=== PATIENT | male | born 1945 | race Caucasian/White ===

== ENCOUNTER 2017-01-11 13:13 | Observation (INO) | payer MEDICARE ==
[~2017-01-11] VITALS: Ht 170.2 cm; Wt 75.0 kg
[~2017-01-11 13:13] MED LIST: CIPR250T2 PO; DOXA1 PO; MOBI15TA PO; PROS5TAB2 PO; ULTR50TA PO; [UNRECOGNIZED DRUG - CODE] TOP
[2017-01-11 14:10] VITALS: BP 111/62; PULSE 85; RESP 12; TEMP 98.1; O2SAT 91
[2017-01-11 14:14] VITALS: BP 111/62; PULSE 84; RESP 21; O2SAT 98
--- NOTE | 2017-01-11 14:31 | PD ---
HPI Chief Complaint: Altered Mental Status Time Seen by Provider: 14:13 Travel History International Travel<30 days: No Contact w/Intl Traveler<30days: No Traveled to known affect area: No History of Present Illness HPI 71-year-old male came to the emergency room brought by EMS for altered mental status. Patient is very lethargic and unable to give any meaningful history. He was found outside the bar. No signs of assault or injury. Vital signs are stable. [facility] Past Medical History Narrative Medical List of his past medical, surgical, social and family history was reviewed from the nursing note. Medical History: Unable to Obtain Arthritis: Yes Asthma: No Blood Disorders: No Anxiety: No Depression: No Cancer: No Cardiovascular Problems: No High Cholesterol: Yes Chemotherapy: No COPD: No Diabetes: No Diminished Hearing: No Endocrine: No Kidney Stones: Yes Musculoskeletal: No Neurologic: No Psychiatric: No Sleep Apnea: No Thyroid Disease: No Influenza Vaccination: No Past Surgical History Surgical History: Unable to Obtain Other Surgery: Yes (L KNEE) Social History Alcohol Use: Yes (DAILY) Tobacco Use: Yes (1 PPD) Substance Use: Yes (K2 AND MARIJUANA) Allergies-Medications (Allergen,Severity, Reaction): Coded Allergies: No Known Allergies (Verified , 01/15/17) Comments No known drug allergies. Reported Meds & Prescriptions Reported Meds & Active Scripts Active Active Prescriptions or Reported Medications Unobtainable Narrative Medication Awaiting for the nurse to do a med reconciliation. Review of Systems Except as stated in HPI: all other systems reviewed are Neg Physical Exam Narrative GENERAL: Lethargic, slurred speech, no obvious distress SKIN: Focused skin assessment warm/dry. HEAD: Atraumatic. Normocephalic. EYES: Pupils equal and round. No scleral icterus. No injection or drainage. ENT: No nasal bleeding or discharge. Mucous membranes pink and moist. NECK: Trachea midline. No JVD. CARDIOVASCULAR: Regular rate and rhythm. No murmur appreciated. RESPIRATORY: No accessory muscle use. Clear to auscultation. Breath sounds equal bilaterally. GASTROINTESTINAL: Abdomen soft, non-tender, nondistended. Hepatic and splenic margins not palpable. MUSCULOSKELETAL: No obvious deformities. No clubbing. No cyanosis. No edema. NEUROLOGICAL: GCS of 13, lethargic. No obvious cranial nerve deficits. Motor grossly within normal limits. Slurred speech. PSYCHIATRIC: Appropriate mood and affect; insight and judgment normal. Data Data Last Documented VS Vital Signs Date Time Temp Pulse Resp B/P Pulse Ox O2 Delivery O2 Flow Rate FiO2 01/11/17 16:20 69 16 123/70 100 Room Air 01/11/17 15:16 2 01/11/17 14:10 98.1 Orders Electrocardiogram (01/11/17 14:35) Ammonia (01/11/17 14:35) Complete Blood Count With Diff (01/11/17 14:35) Comprehensive Metabolic Panel (01/11/17 14:35) Creatine Kinase (Cpk) (01/11/17 14:35) Prothrombin Time / Inr (Pt) (01/11/17 14:35) Troponin I (01/11/17 14:35) Thyroid Stimulating Hormone (01/11/17 14:35) Urinalysis - C+S If Indicated (01/11/17 14:35) Lactic Acid Sepsis Protocol (01/11/17 14:35) Blood Culture (01/11/17 14:35) Chest, Single Ap (01/11/17 14:35) Ct Brain W/O Iv Contrast(Rout) (01/11/17 14:35) Blood Glucose (01/11/17 14:35) Ecg Monitoring (01/11/17 14:35) Iv Access Insert/Monitor (01/11/17 14:35) Oximetry (01/11/17 14:35) Sodium Chloride 0.9% Flush (Ns Flush) (01/11/17 14:45) Sodium Chlor 0.9% 1000 Ml Inj (Ns 1000 M (01/11/17 14:35) Drug Screen, Random Urine (01/11/17 14:36) Alcohol (Ethanol) (01/11/17 14:36) Urine Culture (01/11/17 14:55) Sodium Chlor 0.9% 1000 Ml Inj (Ns 1000 M (01/11/17 15:45) Ceftriaxone Inj (Rocephin Inj) (01/11/17 15:45) Labs Laboratory Tests Test 01/11/17 14:55 White Blood Count 7.9 TH/MM3 Red Blood Count 4.06 MIL/MM3 Hemoglobin 11.6 GM/DL Hematocrit 34.7 % Mean Corpuscular Volume 85.7 FL Mean Corpuscular Hemoglobin 28.6 PG Mean Corpuscular Hemoglobin 33.4 % Concent Red Cell Distribution Width 13.9 % Platelet Count 270 TH/MM3 Mean Platelet Volume 7.8 FL Neutrophils (%) (Auto) 78.9 % Lymphocytes (%) (Auto) 14.5 % Monocytes (%) (Auto) 5.5 % Eosinophils (%) (Auto) 0.8 % Basophils (%) (Auto) 0.3 % Neutrophils # (Auto) 6.3 TH/MM3 Lymphocytes # (Auto) 1.1 TH/MM3 Monocytes # (Auto) 0.4 TH/MM3 Eosinophils # (Auto) 0.1 TH/MM3 Basophils # (Auto) 0.0 TH/MM3 CBC Comment DIFF FINAL Differential Comment Prothrombin Time 10.7 SEC Prothromb Time International 1.0 RATIO Ratio Urine Color YELLOW Urine Turbidity HAZY Urine pH 5.5 Urine Specific [place] 1.024 Urine Protein TRACE mg/dL Urine Glucose (UA) NEG mg/dL Urine Ketones NEG mg/dL Urine Occult Blood NEG Urine Nitrite NEG Urine Bilirubin NEG Urine Urobilinogen 2.0 MG/DL Urine Leukocyte Esterase LARGE Urine RBC 2 /hpf Urine WBC 49 /hpf Urine WBC Clumps RARE Urine Squamous Epithelial 1 /hpf Cells Urine Bacteria RARE /hpf Urine Hyaline Casts 1 /lpf Urine Mucus FEW /lpf Microscopic Urinalysis Comment CATH-CULTURE IND Sodium Level 144 MEQ/L Potassium Level 3.8 MEQ/L Chloride Level 108 MEQ/L Carbon Dioxide Level 30.6 MEQ/L Anion Gap 5 MEQ/L Blood Urea Nitrogen 18 MG/DL Creatinine 1.25 MG/DL Estimat Glomerular Filtration 57 ML/MIN Rate Random Glucose 75 MG/DL Lactic Acid Level 0.8 mmol/L Calcium Level 8.2 MG/DL Total Bilirubin 0.3 MG/DL Aspartate Amino Transf 9 U/L (AST/SGOT) Alanine Aminotransferase 11 U/L (ALT/SGPT) Alkaline Phosphatase 66 U/L Ammonia 35 MCMOL/L Total Creatine Kinase 78 U/L Troponin I LESS THAN 0.02 NG/ML Total Protein 7.0 GM/DL Albumin 3.0 GM/DL Thyroid Stimulating Hormone 0.497 uIU/ML 3rd Gen Urine Opiates Screen NEG Urine Barbiturates Screen NEG Urine Amphetamines Screen NEG Urine Benzodiazepines Screen NEG Urine Cocaine Screen NEG Urine Cannabinoids Screen POS Ethyl Alcohol Level LESS THAN 3 MG/DL MDM Medical Decision Making Medical Screen Exam Complete: Yes Emergency Medical Condition: Yes Medical Record Reviewed: Yes Interpretation(s) Twelve-lead EKG was reviewed by me. Normal sinus rhythm, left axis deviation, nonspecific ST-T wave changes. Heart rate of 72 bpm. Differential Diagnosis Polysubstance abuse, alcohol intoxication, UTI, sepsis Narrative Course 4:33 PM blood test results are back and within acceptable limit except for pneumonia that slightly elevated. Patient's UA is positive for UTI. Chest x- ray and head CT were within normal limit. Alcohol level was 0 and urine drug was positive for marijuana only. At this point the reason for his altered mental status is unknown except for the UTI. I went and reassessed him and he is still lethargic. I would like to admit him at this point. Awaiting for the hospitalist to call back. Procedures EKG Prior to Arrival: No Diagnosis Primary Impression: Altered mental status Qualified Code: R40.1 - Stupor Additional Impression: UTI (urinary tract infection) Qualified Code: N39.0 - Urinary tract infection without hematuria, site unspecified Admitting Information Admitting Physician Requests: Admit Muriel Zelaya MD Jan 11, 2017 14:31 Muriel Zelaya MD Jan 11, 2017 14:31
[2017-01-11] MEDS ORDERED: SODIUM CHLOR 0.9% 1000 ML INJ 1,000 ML IV SCH (14:35)
[2017-01-11] MEDS ORDERED: SODIUM CHLORIDE 0.9% FLUSH 5 ML FLUSH IV FLUSH PRN (14:45)
--- NOTE | 2017-01-11 14:53 | RADRPT ---
EXAM DATE/TIME: 01/11/2017 14:31 [facility] COMPARISON: CHEST SINGLE AP, July 03, 2014, 22:10. INDICATIONS : Altered mental status. MEDICAL HISTORY : Hypercholesterolemia. Smoker. SURGICAL HISTORY : None. ENCOUNTER: Initial ACUITY: 1 day PAIN SCORE: Non-responsive. LOCATION: Bilateral chest FINDINGS: A single view of the chest demonstrates the lungs to be symmetrically aerated without evidence of mas s, infiltrate or effusion. The cardiomediastinal contours are unremarkable. Osseous structures are intact. CONCLUSION: No acute disease. Jacky Hough MD FACR on January 11, 2017 at 14:50 Board Certified Radiologist. This report was verified electronically.
[2017-01-11 15:16] VITALS: BP 102/59; PULSE 70; RESP 17; O2SAT 96
[2017-01-11 15:33] LABS: BACTERIA, URINE RARE /hpf; BLOOD, URINE NEG (NEG); GLUCOSE,URINE NEG (NEG); HYALINE CAST, URINE 1 /lpf (RARE); KETONE, URINE NEG (NEG); MUCUS URINE FEW /lpf (OCC); NITRITE,URINE NEG (NEG); PH, URINE 5.5 (5.0-8.5); SQUAMOUS EPITHELIAL CELL URINE 1 /hpf (0-5); URINE COLOR YELLOW (YELLW/STRAW)
[2017-01-11 15:36] LABS: COMMENT (UR) CATH-CULTURE IND; CULTURE IF INDICATED CATH CULTURE IND
[2017-01-11 15:37] LABS: AUTOMATED NEUTROPHIL # 6.3 TH/MM3 (1.8-7.7); BASOPHIL % 0.3 % (0.0-2.0); EOSINOPHIL # 0.1 TH/MM3 (0-0.4); EOSINOPHIL % 0.8 % (0.0-4.0); HEMATOCRIT 34.7 % (39.0-51.0); HEMO FLAGS DIFF FINAL; LYMPH % 14.5 % (9.0-44.0); LYMPHOCYTE # 1.1 TH/MM3 (1.0-4.8); MEAN CELL VOLUME 85.7 FL (80.0-100.0); MEAN CORPUSCULAR HEMOGLOBIN 28.6 PG (27.0-34.0); MEAN CORPUSCULAR HGB CONC 33.4 % (32.0-36.0); MONO % 5.5 % (0.0-8.0); NEUT % 78.9 % (16.0-70.0); PLATELET COUNT 270 TH/MM3 (150-450); PROTHROMBIN TIME - PATIENT 10.7 SEC (9.8-11.6); RED BLOOD COUNT 4.06 MIL/MM3 (4.50-5.90); RED CELL DISTRIBUTION WIDTH 13.9 % (11.6-17.2); WHITE BLOOD COUNT 7.9 TH/MM3 (4.0-11.0)
[2017-01-11 15:38] LABS: AMPHETAMINE, URINE NEG (NEG); BARBITURATES, URINE NEG (NEG); COCAINE, URINE NEG (NEG)
--- NOTE | 2017-01-11 15:44 | RADRPT ---
EXAM DATE/TIME: 01/11/2017 15:04 [facility] COMPARISON: CT BRAIN W/O CONTRAST, July 03, 2014, 23:10. INDICATIONS : Altered mental status RADIATION DOSE: 49.37 CTDIvol (mGy) MEDICAL HISTORY : None SURGICAL HISTORY : None. ENCOUNTER: Initial ACUITY: 1 day PAIN SCALE: 0/10 LOCATION: cranial TECHNIQUE: Multiple contiguous axial images were obtained of the head. Using automated exposure control and adj ustment of the mA and/or kV according to patient size, radiation dose was kept as low as reasonably a chievable to obtain optimal diagnostic quality images. DICOM format image data is available electro nically for review and comparison. FINDINGS: CEREBRUM: The ventricles are normal for age. No evidence of midline shift, mass lesion, hemorrhage or acute in farction. No extra-axial fluid collections are seen. POSTERIOR FOSSA: The cerebellum and brainstem are intact. The 4th ventricle is midline. The cerebellopontine angle i s unremarkable. EXTRACRANIAL: The visualized portion of the orbits is intact. SKULL: The calvaria is intact. No evidence of skull fracture. CONCLUSION: No acute disease. No significant change has occurred. Flo Maldonado MD on January 11, 2017 at 15:40 Board Certified Radiologist. This report was verified electronically.
[2017-01-11] MEDS ORDERED: cefTRIAXone INJ 1,000 MG in SODIUM CHLORIDE 0.9% INJ 100 ML IV ONE (15:45)
[2017-01-11] MEDS ORDERED: SODIUM CHLOR 0.9% 1000 ML INJ 1,000 ML IV ONE (15:45)
[2017-01-11 15:49] LABS: ALT (GPT) 11 U/L (12-78); ANION GAP 5 MEQ/L (5-15); AST (GOT) 9 U/L (15-37); BICARBONATE 30.6 MEQ/L (21.0-32.0); BLOOD UREA NITROGEN 18 MG/DL (7-18); CHLORIDE 108 MEQ/L (98-107); GLOMERULAR FILTRATION RATE 57 ML/MIN (>89); POTASSIUM 3.8 MEQ/L (3.5-5.1); SODIUM (NA) 144 MEQ/L (136-145)
[2017-01-11 15:58] LABS: ALKALINE PHOSPHATASE 66 U/L (45-117); TOTAL BILIRUBIN ADULT 0.3 MG/DL (0.2-1.0)
[2017-01-11 15:59] LABS: CREATINE KINASE 78 U/L (39-308)
[2017-01-11 16:20] VITALS: BP 123/70; PULSE 69; RESP 16; O2SAT 100
[2017-01-11] MEDS ORDERED: SENNOSIDES 8.6 MG TAB PO PRN (17:30)
[2017-01-11] MEDS ORDERED: ONDANSETRON HCL 4 MG/2 ML VIAL IVP PRN (17:30)
[2017-01-11] MEDS ORDERED: MAGNESIUM HYDROXIDE SUSP 30 ML CUP PO PRN (17:30)
[2017-01-11] MEDS ORDERED: BISACODYL 10 MG SUPP RECTAL PRN (17:30)
[2017-01-11] MEDS ORDERED: SODIUM CHLORIDE 0.9% FLUSH 10 ML FLUSH IV FLUSH PRN (17:30)
[2017-01-11] MEDS ORDERED: cloNIDine HCL 0.1 MG TAB PO PRN (17:30)
[2017-01-11] MEDS ORDERED: NALOXONE HCL 0.4 MG/ML AMP IV PRN (17:30)
[2017-01-11] MEDS ORDERED: LACTULOSE SYRUP 20 GM/30 ML CUP PO PRN (17:30)
[2017-01-11] MEDS ORDERED: ACETAMINOPHEN 325 MG TAB PO PRN (17:30)
--- NOTE | 2017-01-11 19:11 | HHI.HP ---
[facility] Service Family Medicine Primary Care Physician Unknown Admission Diagnosis altered mental status, UTI Diagnoses: International Travel<30 Days: No Contact w/Intl Traveler<30days: No History of Present Illness Patient is a 71-year-old with a history of seizures who presents EMS for altered mental status from home. Per ED physician sign out, patient was lethargic and stuporous with a GCS of 13. He states he has a history of seizures and is on trazodone at home. He notes that he probably had a seizure given he feels like he is postictal. He denies any chest pain, shortness of breath, nausea, vomiting, headache, dizziness, abdominal pain, joint pain. He states he does not feel like he fell. He states he is unsure why he is in the hospital and that he has gotten up and gone to the bathroom multiple times since he has been here. Review of Systems Constitutional: DENIES: Fever, Chills Eyes: DENIES: Blurred vision, Diplopia, Vision loss Ears, nose, mouth, throat: DENIES: Hearing loss, Vertigo, Throat pain, Ear Pain Respiratory: DENIES: Cough, Sputum production, Shortness of breath Cardiovascular: DENIES: Chest pain, Palpitations Gastrointestinal: DENIES: Abdominal pain, Black stools, Bloody stools, Constipation, Diarrhea, Nausea, Vomiting Genitourinary: DENIES: Urinary frequency, Dysuria, Nocturia Musculoskeletal: DENIES: Joint pain, Back pain Integumentary: DENIES: Pruritus, Rash Hematologic/lymphatic: DENIES: Bruising, Lymphadenopathy Immunologic/allergic: DENIES: Eczema, Urticaria Neurologic: DENIES: Abnormal gait, Headache Psychiatric: DENIES: Anxiety, Confusion, Mood changes, Depression, Hallucinations, Agitation Past Family Social History Past Medical History Seizure disorder Hyperlipidemia Past Surgical History Left knee surgery Reported Medications He reports taking trazodone, meloxicam, finasteride, simvastatin, and Myoflex as medications. [facility]. Allergies: Coded Allergies: No Known Allergies (Verified , 01/11/17) Social History Patient states he is a , served in the [employer]. He lives with his friend named Taz Bishop Physical Exam Vital Signs Vital Signs Date Time Temp Pulse Resp B/P Pulse Ox O2 Delivery O2 Flow Rate FiO2 01/11/17 16:20 69 16 123/70 100 Room Air 01/11/17 15:16 70 17 102/59 96 Nasal Cannula 2 01/11/17 14:14 84 21 111/62 98 Nasal Cannula 2 01/11/17 14:10 98.1 85 12 111/62 91 Physical Exam GENERAL: This is a well-nourished, well-developed patient, in no apparent distress. He is sleeping on initial interview and wakes up quickly. He answers questions fairly. SKIN: No rashes, ecchymoses or lesions. Cool and dry. No rashes. HEAD: Atraumatic. Normocephalic. No temporal or scalp tenderness. EYES: Pupils equal round and reactive to light and accommodation.. Extraocular motions intact. No scleral icterus. No injection or drainage. ENT: Nose without bleeding, purulent drainage or septal hematoma. There is no tongue laceration. Throat without erythema, tonsillar hypertrophy or exudate. Uvula midline. Airway patent. NECK: Trachea midline. No JVD or lymphadenopathy. Supple, nontender, no meningeal signs. CARDIOVASCULAR: Regular rate and rhythm without murmurs, gallops, or rubs. RESPIRATORY: Clear to auscultation. Breath sounds equal bilaterally. No wheezes , rales, or rhonchi. GASTROINTESTINAL: Abdomen soft, non-tender, nondistended. No hepato-splenomegaly , or palpable masses. No guarding. MUSCULOSKELETAL: Extremities without clubbing, cyanosis, or edema. No joint tenderness, effusion, or edema noted. No calf tenderness. Negative Homans sign bilaterally. NEUROLOGICAL: Awake and alert. He is alert and oriented to person, place, time, and context. He knows he is at [facility] and how he got here. Cranial nerves II through XII intact. Motor and sensory grossly within normal limits. Five out of 5 muscle strength in all muscle groups. Normal speech. His GCS is 15 on my evaluation. Laboratory Laboratory Tests Test 01/11/17 14:55 White Blood Count 7.9 Red Blood Count 4.06 Hemoglobin 11.6 Hematocrit 34.7 Mean Corpuscular Volume 85.7 Mean Corpuscular Hemoglobin 28.6 Mean Corpuscular Hemoglobin 33.4 Concent Red Cell Distribution Width 13.9 Platelet Count 270 Mean Platelet Volume 7.8 Neutrophils (%) (Auto) 78.9 Lymphocytes (%) (Auto) 14.5 Monocytes (%) (Auto) 5.5 Eosinophils (%) (Auto) 0.8 Basophils (%) (Auto) 0.3 Neutrophils # (Auto) 6.3 Lymphocytes # (Auto) 1.1 Monocytes # (Auto) 0.4 Eosinophils # (Auto) 0.1 Basophils # (Auto) 0.0 CBC Comment DIFF FINAL Differential Comment Prothrombin Time 10.7 Prothromb Time International 1.0 Ratio Urine Color YELLOW Urine Turbidity HAZY Urine pH 5.5 Urine Specific [place] 1.024 Urine Protein TRACE Urine Glucose (UA) NEG Urine Ketones NEG Urine Occult Blood NEG Urine Nitrite NEG Urine Bilirubin NEG Urine Urobilinogen 2.0 Urine Leukocyte Esterase LARGE Urine RBC 2 Urine WBC 49 Urine WBC Clumps RARE Urine Squamous Epithelial 1 Cells Urine Bacteria RARE Urine Hyaline Casts 1 Urine Mucus FEW Microscopic Urinalysis Comment CATH-CULTURE IND Sodium Level 144 Potassium Level 3.8 Chloride Level 108 Carbon Dioxide Level 30.6 Anion Gap 5 Blood Urea Nitrogen 18 Creatinine 1.25 Estimat Glomerular Filtration 57 Rate Random Glucose 75 Lactic Acid Level 0.8 Calcium Level 8.2 Total Bilirubin 0.3 Aspartate Amino Transf 9 (AST/SGOT) Alanine Aminotransferase 11 (ALT/SGPT) Alkaline Phosphatase 66 Ammonia 35 Total Creatine Kinase 78 Troponin I LESS THAN 0.02 Total Protein 7.0 Albumin 3.0 Thyroid Stimulating Hormone 0.497 3rd Gen Urine Opiates Screen NEG Urine Barbiturates Screen NEG Urine Amphetamines Screen NEG Urine Benzodiazepines Screen NEG Urine Cocaine Screen NEG Urine Cannabinoids Screen POS Ethyl Alcohol Level LESS THAN 3 Date/Time Procedure Status Source Growth 01/11/17 14:55 Urine Culture Received Urine Catheterized Urine Pending 01/11/17 14:55 Aerobic Blood Culture Received Blood Peripheral Pending 01/11/17 14:55 Anaerobic Blood Culture Received Blood Peripheral Pending Result Diagram: 01/11/17 1455 01/11/17 1455 Imaging Last Impressions Head CT 01/11/17 1435 Signed Impressions: Service Date/Time: Wednesday, January 11, 2017 15:04 - CONCLUSION: No acute disease. No significant change has occurred. Flo Maldonado MD Chest X-Ray 01/11/17 1435 Signed Impressions: Service Date/Time: Wednesday, January 11, 2017 14:31 - CONCLUSION: No acute disease. Jacky Hough MD FACR Assessment and Plan Assessment and Plan 71-year-old male with reported history of seizures who presents with AMS. On evaluation he does not appear to be altered but does have a UA suggestive of UTI. He will be admitted to observation for further evaluation. Code Status Full code Discussed Condition With Discussed with Dr. Vicente, PGY-[address] Allen, PGY-2 Problem List: (1) Altered mental status Status: Acute Plan: Patient found to have altered mental status on ED evaluation. This appears to have resolved. Initial workup notable for positive cannabinoids on UDS. EtOH is negative. CBC and electrolytes are unremarkable. Head CT and chest x-ray ordered an ED were negative for acute disease. UA is noted to have large leukocyte esterase and 49 WBCs, likely due to UTI. Rocephin 1 IV was given in ED. Plan: Admit for observation Rocephin 1 g IV every 24 hours, transition to by mouth possibly tomorrow Follow urine culture Further workup for AMS to include magnesium, phosphorus, B1, B12, RPR. (2) UTI (urinary tract infection) Status: Acute Plan: UA notable for as of leukocyte esterase, 20 WBC, clean-catch without many squamous cells. Rocephin 1 given in ED. Recommend continued inpatient management of UTI and transition to by mouth possibly tomorrow. (3) Syncope Status: Acute Plan: Recent had possible syncopal episode at home, , however, this was likely a seizure. Last dose of trazodone was 01/10/17 in the a.m. Says he has a neurologist at [facility] Ordered enzymes and EKG trending Monitor on telemetry (4) Fluids/Electrolytes/Nutrition/Prophylaxis Status: Acute Plan: Fluids: tolerating PO Electrolytes: monitor and replete as needed Nutrition: Regular basic diet DVT Prophylaxis: Early ambulation. Lovenox 40mg subQ q24hr/bilateral SCDs GI Prophylaxis: Not indicated Physician Certification 2 Midnight Certification Type: Continued Stay Order for Inpatient Services The services are ordered in accordance with Medicare regulations or non- Medicare payer requirements, as applicable. In the case of services not specified as inpatient-only, they are appropriately provided as inpatient services in accordance with the 2-midnight benchmark. Estimated LOS (days): 2 days is the estimated time the patient will need to remain in the hospital, assuming treatment plan goals are met and no additional complications. Post-Hospital Plan: Home (2) Problem Qualifiers (1) Altered mental status: Qualified Code: R40.1 - Stupor (2) UTI (urinary tract infection): Qualified Code: N39.0 - Urinary tract infection without hematuria, site unspecified Maira Lazo MD R1 Jan 11, 2017 19:11
--- NOTE | 2017-01-11 19:37 | PD.AMA ---
Against Medical Advice Note Discharge Disposition: Against Medical Advice Pt Condition on Discharge: Stable AMA Statement Patient Panchito Solomon has decided to leave the hospital against medical advice. When patient was evaluated at bedside, his GCS was 15 and he was fully alert and oriented. He was cooperative and followed all commands. He has the capacity to refuse medical care and understands that he has a UTI and needs treatment. He understands the risks of leaving, including permanent disability and/or , and has had an opportunity to ask questions about his condition. The patient has been informed that he may return for care at any time, and follow up has been arranged/advised. Maira Lazo MD R1 Jan 11, 2017 19:37
[2017-01-11] MEDS ORDERED: ENOXAPARIN SODIUM 40 MG/0.4 ML SYRINGE SQ SCH (20:00)
[2017-01-11] MEDS ORDERED: DOCUSATE SODIUM 50 MG/SENNA 8.6 MG TAB PO SCH (21:00)
[2017-01-11] MEDS ORDERED: SODIUM CHLORIDE 0.9% FLUSH 10 ML FLUSH IV FLUSH SCH (21:00)
[2017-01-11 23:42] LABS: MAGNESIUM 2.1 MG/DL (1.5-2.5)
--- NOTE | 2017-01-12 13:26 | EKG ---
Date Performed: 01/11/2017 Time Performed: 15:14:34 PTAGE: 71 years EKG: Sinus rhythm MODERATE INTRAVENTRICULAR CONDUCTION DELAY NONSPECIFIC T-WAVE ABNORMALITY BORDERLINE ECG INTERPRETAT ION BASED ON A DEFAULT AGE OF 40 YEARS NO PREVIOUS TRACING DOCTOR: Robert Diaz Interpretating Date/Time 01/12/2017 13:19:50
[2017-01-12] MEDS ORDERED: cefTRIAXone INJ 1,000 MG in SODIUM CHLORIDE 0.9% INJ 100 ML IV SCH (14:00)
== END 2017-01-11 19:21 | disposition left against medical advice (07) ==
LOC: NEPC 13:13 → NEDA 16:46 → UNDOADMIN 16:46 → NEDA 17:25
PROVIDERS: ADMIT Family Medicine; ATTEND Family Medicine
DX: R41.82 Altered mental status, unspecified (principal); R40.1 Stupor; N39.0 Urinary tract infection, site not specified; R55 Syncope and collapse; R47.81 Slurred speech; R53.83 Other fatigue; E78.5 Hyperlipidemia, unspecified; E78.00 Pure hypercholesterolemia, unspecified; G40.909 Epilepsy, unspecified, not intractable, without status epilepticus; M19.90 Unspecified osteoarthritis, unspecified site; F17.200 Nicotine dependence, unspecified, uncomplicated; Z79.899 Other long term (current) drug therapy
CPT/HCPCS: 70450; 71010; 80053; 80307; 81001; 82140; 82550; 82607; 83605; 83735; 84100; 84443; 84484; 85025; 85610; 87040; 87086; 93005; 96361; 96365; 99285; G0378; J0696; J7030

== ENCOUNTER 2017-01-15 11:01 | Emergency (ER) | payer MEDICARE ==
[~2017-01-15] VITALS: Ht 180.3 cm; Wt 86.0 kg
[2017-01-15 11:13] VITALS: BP 160/91; PULSE 67; RESP 18; TEMP 98.1; O2SAT 96
--- NOTE | 2017-01-15 11:18 | PD ---
HPI . drug intoxication:marijuana and K2 Chief Complaint: drug intoxication Time Seen by Provider: 11:17 Travel History International Travel<30 days: No Contact w/Intl Traveler<30days: No Traveled to known affect area: No History of Present Illness HPI 71-year-old male brought in by EMS due to what neighbors report as a possible seizure. Patient was found squirming around the floor and yelling. Neighbors reported to the paramedics that patient had been smoking marijuana along with spice (K2). Per paramedics patient had no specific complaints. His vital signs were stable. Here in the emergency department patient is obviously under the influence of some type of drug, however he is cooperative. He denies any type of pain or discomfort. PFSH Past Medical History Arthritis: Yes Asthma: No Blood Disorders: No Anxiety: No Depression: No Cancer: No Cardiovascular Problems: No High Cholesterol: Yes Chemotherapy: No COPD: No Diabetes: No Diminished Hearing: No Endocrine: No Kidney Stones: Yes Musculoskeletal: No Neurologic: No Psychiatric: No Sleep Apnea: No Thyroid Disease: No Past Surgical History Other Surgery: Yes (L KNEE) Social History Alcohol Use: Yes (DAILY) Tobacco Use: Yes (1 PPD) Substance Use: Yes (K2 AND MARIJUANA) Allergies-Medications (Allergen,Severity, Reaction): Coded Allergies: No Known Allergies (Verified , 01/15/17) Reported Meds & Prescriptions Reported Meds & Active Scripts Active Ciprofloxacin (Ciprofloxacin HCl) 500 Mg Tab 500 Mg PO BID 5 Days Review of Systems General / Constitutional: No: Fever Eyes: No: Visual changes HENT: No: Headaches Cardiovascular: No: Chest Pain or Discomfort Respiratory: No: Shortness of Breath Gastrointestinal: No: Abdominal Pain Genitourinary: No: Dysuria Musculoskeletal: No: Pain Skin: No Rash Neurologic: Positive: Change in Mentation, Other (drug intoxication), No: Weakness Psychiatric: No: Depression Endocrine: No: Polydipsia Hematologic/Lymphatic: No: Easy Bruising Physical Exam Narrative GENERAL: Well-nourished, well-developed patient. SKIN: Warm and dry. No visible rashes or bruising. HEAD: Normocephalic and atraumatic. EYES: No scleral icterus. No injection or drainage. EOM intact, PERRLA ENT: No nasal drainage noted. Mucous membranes pink. Airway patent. Dry mucous membranes NECK: Supple, trachea midline. No JVD. CARDIOVASCULAR: Regular rate and rhythm without murmurs, gallops, or rubs. RESPIRATORY: Breath sounds equal bilaterally. No accessory muscle use. No rhonchi or rales. GASTROINTESTINAL: Abdomen soft, non-tender, nondistended. EXTREMITIES: No cyanosis or edema. No tenderness to palpation of upper and lower extremities. Pedal pulses intact bilaterally. BACK: Nontender without obvious deformity. No CVA tenderness. NEURO: CN II-12 intact, upper and lower extremities strength 5/5 PSYCH: Difficult to assess due to drug intoxication Data Data Last Documented VS Vital Signs Date Time Temp Pulse Resp B/P Pulse Ox O2 Delivery O2 Flow Rate FiO2 01/15/17 14:55 97.8 66 16 130/76 98 01/15/17 12:02 Room Air Orders Complete Blood Count With Diff (01/15/17 11:18) Comprehensive Metabolic Panel (01/15/17 11:18) Drug Screen, Random Urine (01/15/17 11:18) Alcohol (Ethanol) (01/15/17 11:18) Salicylates (Aspirin) (01/15/17 11:18) Tylenol (Acetaminophen) (01/15/17 11:18) Urinalysis - C+S If Indicated (01/15/17 11:19) Sodium Chlor 0.9% 1000 Ml Inj (Ns 1000 M (01/15/17 11:30) Ecg Monitoring (01/15/17 11:42) Iv Access Insert/Monitor (01/15/17 11:42) Oximetry (01/15/17 11:42) Sodium Chlor 0.9% 1000 Ml Inj (Ns 1000 M (01/15/17 12:30) Urine Culture (01/15/17 11:46) Labs Laboratory Tests Test 01/15/17 01/15/17 11:21 11:46 White Blood Count 8.9 TH/MM3 Red Blood Count 4.25 MIL/MM3 Hemoglobin 12.4 GM/DL Hematocrit 36.7 % Mean Corpuscular Volume 86.2 FL Mean Corpuscular Hemoglobin 29.1 PG Mean Corpuscular Hemoglobin 33.7 % Concent Red Cell Distribution Width 14.2 % Platelet Count 303 TH/MM3 Mean Platelet Volume 7.6 FL Neutrophils (%) (Auto) 72.0 % Lymphocytes (%) (Auto) 22.0 % Monocytes (%) (Auto) 5.0 % Eosinophils (%) (Auto) 0.7 % Basophils (%) (Auto) 0.3 % Neutrophils # (Auto) 6.4 TH/MM3 Lymphocytes # (Auto) 2.0 TH/MM3 Monocytes # (Auto) 0.4 TH/MM3 Eosinophils # (Auto) 0.1 TH/MM3 Basophils # (Auto) 0.0 TH/MM3 CBC Comment DIFF FINAL Differential Comment Sodium Level 143 MEQ/L Potassium Level 4.3 MEQ/L Chloride Level 106 MEQ/L Carbon Dioxide Level 34.1 MEQ/L Anion Gap 3 MEQ/L Blood Urea Nitrogen 18 MG/DL Creatinine 1.35 MG/DL Estimat Glomerular Filtration 52 ML/MIN Rate Random Glucose 95 MG/DL Calcium Level 9.2 MG/DL Total Bilirubin 0.4 MG/DL Aspartate Amino Transf 12 U/L (AST/SGOT) Alanine Aminotransferase 14 U/L (ALT/SGPT) Alkaline Phosphatase 68 U/L Total Protein 7.5 GM/DL Albumin 3.4 GM/DL Salicylates Level LESS THAN 1.7 MG/DL Acetaminophen Level LESS THAN 2.0 MCG/ML Ethyl Alcohol Level LESS THAN 3 MG/DL Urine Color YELLOW Urine Turbidity CLEAR Urine pH 6.0 Urine Specific Enigma 1.007 Urine Protein NEG mg/dL Urine Glucose (UA) NEG mg/dL Urine Ketones NEG mg/dL Urine Occult Blood NEG Urine Nitrite NEG Urine Bilirubin NEG Urine Urobilinogen LESS THAN 2.0 MG/DL Urine Leukocyte Esterase LARGE Urine RBC 1 /hpf Urine WBC 34 /hpf Urine Squamous Epithelial <1 /hpf Cells Urine Calcium Oxalate Crystals OCC /hpf Urine Bacteria RARE /hpf Urine Mucus FEW /lpf Microscopic Urinalysis Comment CULTURE INDICATED Urine Opiates Screen NEG Urine Barbiturates Screen NEG Urine Amphetamines Screen NEG Urine Benzodiazepines Screen NEG Urine Cocaine Screen POS Urine Cannabinoids Screen POS [facility] Medical Decision Making Medical Screen Exam Complete: Yes Emergency Medical Condition: Yes Medical Record Reviewed: Yes Differential Diagnosis drug intoxication, alcohol intoxication, AMS, UTI, Narrative Course 71-year-old male here with drug intoxication. Labs have been ordered. Patient resting comfortably. He is cooperative and alert and oriented when spoken to. He is very sleepy and would benefit from sleeping this off. His labs have been reviewed. His Creatinine is slightly elevated compared to prior visit on 01/11/17, IV fluid provided. He appears to have a UTI. Last micro report without growth. Will go ahead and treat with shanaero as outpatient. Once patient wakes up we will discuss this with him and include all instructions in his discharge paperwork. I recommend cessation of all illegal drugs. Case discussed with Dr. Moreau. Laboratory Tests Test 01/15/17 01/15/17 11:21 11:46 White Blood Count 8.9 TH/MM3 Red Blood Count 4.25 MIL/MM3 Hemoglobin 12.4 GM/DL Hematocrit 36.7 % Mean Corpuscular Volume 86.2 FL Mean Corpuscular Hemoglobin 29.1 PG Mean Corpuscular Hemoglobin 33.7 % Concent Red Cell Distribution Width 14.2 % Platelet Count 303 TH/MM3 Mean Platelet Volume 7.6 FL Neutrophils (%) (Auto) 72.0 % Lymphocytes (%) (Auto) 22.0 % Monocytes (%) (Auto) 5.0 % Eosinophils (%) (Auto) 0.7 % Basophils (%) (Auto) 0.3 % Neutrophils # (Auto) 6.4 TH/MM3 Lymphocytes # (Auto) 2.0 TH/MM3 Monocytes # (Auto) 0.4 TH/MM3 Eosinophils # (Auto) 0.1 TH/MM3 Basophils # (Auto) 0.0 TH/MM3 CBC Comment DIFF FINAL Differential Comment Sodium Level 143 MEQ/L Potassium Level 4.3 MEQ/L Chloride Level 106 MEQ/L Carbon Dioxide Level 34.1 MEQ/L Anion Gap 3 MEQ/L Blood Urea Nitrogen 18 MG/DL Creatinine 1.35 MG/DL Estimat Glomerular Filtration 52 ML/MIN Rate Random Glucose 95 MG/DL Calcium Level 9.2 MG/DL Total Bilirubin 0.4 MG/DL Aspartate Amino Transf 12 U/L (AST/SGOT) Alanine Aminotransferase 14 U/L (ALT/SGPT) Alkaline Phosphatase 68 U/L Total Protein 7.5 GM/DL Albumin 3.4 GM/DL Salicylates Level LESS THAN 1.7 MG/DL Acetaminophen Level LESS THAN 2.0 MCG/ML Ethyl Alcohol Level LESS THAN 3 MG/DL Urine Color YELLOW Urine Turbidity CLEAR Urine pH 6.0 Urine Specific Enigma 1.007 Urine Protein NEG mg/dL Urine Glucose (UA) NEG mg/dL Urine Ketones NEG mg/dL Urine Occult Blood NEG Urine Nitrite NEG Urine Bilirubin NEG Urine Urobilinogen LESS THAN 2.0 MG/DL Urine Leukocyte Esterase LARGE Urine RBC 1 /hpf Urine WBC 34 /hpf Urine Squamous Epithelial <1 /hpf Cells Urine Calcium Oxalate Crystals OCC /hpf Urine Bacteria RARE /hpf Urine Mucus FEW /lpf Microscopic Urinalysis Comment CULTURE INDICATED Urine Opiates Screen NEG Urine Barbiturates Screen NEG Urine Amphetamines Screen NEG Urine Benzodiazepines Screen NEG Urine Cocaine Screen POS Urine Cannabinoids Screen POS Patient has been medically cleared and will sleep it off. Once he murray up, he will be discharged. Diagnosis Primary Impression: Drug intoxication Qualified Code: F19.920 - Drug intoxication, uncomplicated Additional Impression: UTI (urinary tract infection) Qualified Code: N30.00 - Acute cystitis without hematuria Patient Instructions: General Instructions Additional Instructions: Please refrain from using illegal drugs. Follow-up with your primary care provider. You appear to have a urinary tract infection. I have provided antibiotics for you. Please get them filled and start taking them. You will need to follow up with your primary care provider. If there are any abnormalities with the urine culture we have obtained, we will notify you. Med/Other Pt SpecificInfo: Prescription(s) given Scripts Ciprofloxacin 500 Mg [id number] Mg PO BID 5 Days Ref 0 Prov:Javier Moreau MD 01/15/17 Disposition: DISCHARGE HOME Condition: Stable Jerilyn Sanchez Jan 15, 2017 11:18
[2017-01-15] MEDS ORDERED: SODIUM CHLOR 0.9% 1000 ML INJ 1,000 ML IV ONE ×2 (11:30→12:30)
[2017-01-15 11:42] VITALS: RESP 17; O2SAT 97
[2017-01-15 11:52] LABS: AUTOMATED NEUTROPHIL # 6.4 TH/MM3 (1.8-7.7); BASOPHIL % 0.3 % (0.0-2.0); EOSINOPHIL # 0.1 TH/MM3 (0-0.4); EOSINOPHIL % 0.7 % (0.0-4.0); HEMATOCRIT 36.7 % (39.0-51.0); HEMO FLAGS DIFF FINAL; MEAN CELL VOLUME 86.2 FL (80.0-100.0); MEAN CORPUSCULAR HEMOGLOBIN 29.1 PG (27.0-34.0); MEAN CORPUSCULAR HGB CONC 33.7 % (32.0-36.0); PLATELET COUNT 303 TH/MM3 (150-450); RED BLOOD COUNT 4.25 MIL/MM3 (4.50-5.90); RED CELL DISTRIBUTION WIDTH 14.2 % (11.6-17.2); WHITE BLOOD COUNT 8.9 TH/MM3 (4.0-11.0)
[2017-01-15 12:02] VITALS: BP 154/75; PULSE 68; RESP 16; O2SAT 97
[2017-01-15 12:03] LABS: ANION GAP 3 MEQ/L (5-15)
[2017-01-15 12:14] LABS: ALKALINE PHOSPHATASE 68 U/L (45-117); ALT (GPT) 14 U/L (12-78); AST (GOT) 12 U/L (15-37); BICARBONATE 34.1 MEQ/L (21.0-32.0); BLOOD UREA NITROGEN 18 MG/DL (7-18); CHLORIDE 106 MEQ/L (98-107); GLOMERULAR FILTRATION RATE 52 ML/MIN (>89); POTASSIUM 4.3 MEQ/L (3.5-5.1); SODIUM (NA) 143 MEQ/L (136-145); TOTAL BILIRUBIN ADULT 0.4 MG/DL (0.2-1.0)
[2017-01-15 12:15] LABS: ACETAMINOPHEN LESS THAN 2.0 MCG/ML (10.0-30.0)
[2017-01-15 13:04] LABS: BACTERIA, URINE RARE /hpf; BLOOD, URINE NEG (NEG); CALCIUM OXALATE CRYSTALS,URINE OCC /hpf; COMMENT (UR) CULTURE INDICATED; CULTURE IF INDICATED CULTURE INDICATED; GLUCOSE,URINE NEG (NEG); KETONE, URINE NEG (NEG); MUCUS URINE FEW /lpf (OCC); NITRITE,URINE NEG (NEG); SQUAMOUS EPITHELIAL CELL URINE <1 /hpf (0-5); URINE COLOR YELLOW (YELLW/STRAW)
[2017-01-15 13:06] LABS: AMPHETAMINE, URINE NEG (NEG); BARBITURATES, URINE NEG (NEG); COCAINE, URINE POS (NEG)
[2017-01-15] MEDS ORDERED: CIPR500T2 PO (13:23)
[2017-01-15 14:55] VITALS: BP 130/76; TEMP 97.8
== END 2017-01-15 15:04 | disposition home or self-care (01) ==
LOC: NEPE 11:01
DX: T40.7X5A Adverse effect of cannabis (derivatives), initial encounter (principal); N39.0 Urinary tract infection, site not specified; E78.00 Pure hypercholesterolemia, unspecified; M19.90 Unspecified osteoarthritis, unspecified site; F17.200 Nicotine dependence, unspecified, uncomplicated; Z79.899 Other long term (current) drug therapy
CPT/HCPCS: 80053; 80307; 81001; 85025; 87086; 96360; 96361; 99284; J7030